=== PATIENT | male | born 1960 | race Caucasian/White ===

== ENCOUNTER → 2018-06-25 | Outpatient (REF) | payer OTHER ==
[~2018-06-25] MED LIST: ASPIRIN ADULT L81 M2 PO; BRILINTA90 MG PO; CIPRO500 MG OR; LIPITOR40 M1 PO; LISINOP/HCTZ1 TAB PO; LORTAB 5 OR; LOSARTAN POT100 MG PO; METOPROL TAR25 M1 PO; NITROSTAT0.4 MG SL; WELLBUTRIN X1 PO
[2018-06-25 11:04] VITALS: BP 147/92
== END | disposition home or self-care (01) | DRG 951 ==
LOC: PO 08:45 → ORM 09:00
PROVIDERS: ATTEND Surgery
DX: Z01.818 Encounter for other preprocedural examination (principal); Z12.11 Encounter for screening for malignant neoplasm of colon; I25.10 Atherosclerotic heart disease of native coronary artery without angina pectoris; I10 Essential (primary) hypertension; M43.26 Fusion of spine, lumbar region; Z90.49 Acquired absence of other specified parts of digestive tract; Z95.818 Presence of other cardiac implants and grafts; Z98.890 Other specified postprocedural states; R14.0 Abdominal distension (gaseous)

== ENCOUNTER 2018-07-04 08:19 | Day surgery (SDC) | payer OTHER ==
[~2018-07-04] VITALS: Ht 177.8 cm; Wt 113.4 kg
[2018-07-04 11:35] VITALS: BP 126/73
== END 2018-07-04 11:51 | disposition home or self-care (01) ==
LOC: ENDO 08:19
PROVIDERS: ATTEND Surgery
DX: Z12.11 Encounter for screening for malignant neoplasm of colon (principal); K63.5 Polyp of colon; K57.30 Diverticulosis of large intestine without perforation or abscess without bleeding; K64.8 Other hemorrhoids; I25.2 Old myocardial infarction; Z95.5 Presence of coronary angioplasty implant and graft